=== PATIENT | male | born 1960 | race Caucasian/White ===

== ENCOUNTER 2020-06-16 09:16 | Emergency (ER) | payer OTHER, SELFPAY ==
[2020-06-16 09:34] VITALS: BP 159/88; PULSE 67; RESP 18; TEMP 36.4; O2SAT 98; BMI 24.7
--- NOTE | 2020-06-16 09:53 | ED_ITS ---
HPI - Weakness General Chief complaint: Dizziness Stated complaint: fatigue, falling asleep during activities, dizzy Time Seen by Provider: 06/16/20 09:28 Source: patient Mode of arrival: Family Vehicle Limitations: no limitations History of Present Illness HPI Narrative: Patient is a 50-year-old male who presents with generalized weakness ongoing for months. He states that he gets dizzy while hiking or exercising which she normally is able to do without any difficulty. He is noticing increased day sleepiness. states that he snores but does not think that he stops breathing or at think that it is abnormal. He denies any black or bloody stools. He has some occasional shortness of breath but he says it is really not too bad no chest pain or palpitations. He is only dizzy when doing strenuous exercise. He denies any balance issues while walking. He overall just feels weak and fatigued. He states that he does eat a healthy diet had a he drinks beer a to daily does not feel like it is excessive, he drinks water regularly. MD Complaint: generalized weakness Related Data Home Medications Medication Instructions Recorded Confirmed fluticasone propion-salmeterol 1 inh INHALATION BID 06/16/20 06/16/20 [Advair Diskus] Previous Rx's Medication Instructions Recorded albuterol sulfate 2 puff INHALATION Q4-6H PRN #8.5 06/16/20 gram Allergies Allergy/AdvReac Type Severity Reaction Status Date / Time No Known Drug Allergies Allergy Verified 06/16/20 09:39 Review of Systems Review of Systems ROS Unobtainable: All systems reviewed & are unremarkable except as noted in HPI and below Constitutional Constitutional: Reports daytime sleepiness, Reports lethargy and Reports weakness ENT Ears, Nose, Mouth, and Throat: Denies change in voice, Reports dizziness (while exercising), Denies neck pain and Denies sore throat Cardiovascular Cardiovascular: Denies chest pain, Denies irregular heart rhythm, Denies lightheadedness, Denies palpitations, Denies dyspnea, Denies dyspnea on exertion and Denies orthopnea Respiratory Respiratory: Denies cough, Denies dyspnea, Denies dyspnea on exertion and Denies wheezing Gastrointestinal Gastrointestinal: Denies abdominal pain, Denies change in bowel habits, Denies diarrhea, Denies nausea and Denies vomiting Genitourinary Genitourinary: Denies urinary hesitancy and Denies urinary urgency Genitourinary: Denies urinary hesitancy and Denies urinary urgency Musculoskeletal Musculoskeletal: Denies back pain, Denies myalgias and Denies neck pain Integumentary/Breasts Skin/Breast: Denies pruritus, Denies erythema, Denies rash and Denies wounds Neurologic Neurologic: Reports dizziness (while exercising) and Reports weakness Endocrine Endocrine: Denies palpitations Allergic/Immunologic Allergic/Immunologic: Denies wheezing Patient History Medical History Patient denies medical problems Social History Smoking Status: Former smoker Smoking Status: Former smoker alcohol intake frequency: 3 or more drinks per day Alcohol type: beer Substance Use Type: marijuana Exam Initial Vital Signs Initial Vital Signs: Vital Signs Temperature 97.6 F 06/16/20 09:34 Pulse Rate 67 06/16/20 09:34 Respiratory Rate 18 06/16/20 09:34 Blood Pressure 159/88 H 06/16/20 09:34 Pulse Oximetry 98 06/16/20 09:34 GENERAL: Well-appearing, well-nourished and in no acute distress. HEENT: Head atraumatic,EOMI, pupils reactive, face symmetric, moist mucous membranes CARDIOVASCULAR: Regular rate and rhythm without murmurs, rubs or gallops. RESPIRATORY: Breath sounds equal bilaterally, no wheezes rales or rhonchi. ABDOMEN: Soft, nontender. Normoactive bowel sounds all 4 quadrants. No guarding or rebound. EXTREMITIES: Normal range of motion, no clubbing or edema. Neurovascularly intact NEUROLOGICAL: Alert and oriented x4.Normal gait and speech. Cranial nerves II through XII grossly intact. [employer] strength equal bilaterally able to lift legs equally SKIN: Warm, dry, no laceration, no petechiae, no rashes or lesions. Course Orders Ordered: ED Orders 06/16/20 09:53 XR chest 2V Stat 06/16/20 09:59 EKG-12 Lead Stat 06/16/20 10:13 Complete Blood Count AUTO DIFF Stat Comprehensive Metabolic Panel Stat Thyroid Stimulating Hormone Stat Troponin & CK Cardiac Panel Stat Vital Signs Vital signs: Vital Signs - 8 hr 06/16/20 10:30 06/16/20 10:32 06/16/20 11:00 Pulse Rate 59 L 59 L Pulse Rate [Orthostatic Lying] 60 Pulse Rate [Orthostatic Sitting] 64 Pulse Rate [Orthostatic Standing] 68 Respiratory Rate 24 Blood Pressure 136/81 Blood Pressure [Orthostatic Lying] 124/83 Blood Pressure [Orthostatic Sitting] 145/85 H Blood Pressure [Orthostatic Standing] 141/89 H Pulse Oximetry 97 96 06/16/20 11:30 06/16/20 11:53 Pulse Rate 58 L 58 L Pulse Rate [Orthostatic Lying] Pulse Rate [Orthostatic Sitting] Pulse Rate [Orthostatic Standing] Respiratory Rate Blood Pressure 129/77 Blood Pressure [Orthostatic Lying] Blood Pressure [Orthostatic Sitting] Blood Pressure [Orthostatic Standing] Pulse Oximetry 94 97 MDM - Weakness Lab Data Attestation: I reviewed the patient's lab results. Result diagrams: 06/16/20 10:13 06/16/20 10:13 Labs: Lab Results 06/16/20 06/16/20 06/16/20 Range/Units 10:13 10:13 10:13 WBC 6.2 (4.5-11.0) X10^3/uL RBC 5.01 (4.5-5.9) X10^6/uL Hgb 15.7 (13.5-17.5) g/dL Hct 46.1 (41-53) % MCV 92.1 (80-100) fL MCH 31.3 (26-34) PG MCHC 34.1 (30-36) % RDW 13.6 (11.6-14.8) % Plt Count 212 (150-400) X10^3/uL Neut % (Auto) 58.8 (50-75) % Lymph % (Auto) 27.4 (25-40) % [place] % (Auto) 9.1 (3-14) % Eos % (Auto) 3.3 (2-4) % Baso % (Auto) 1.4 (0-2) % Neut # (Auto) 3600 (6592-5893) /uL Lymph # (Auto) 1700 (5708-5965) /uL [place] # (Auto) 600 (0-900) /uL Eos # (Auto) 200 (0-450) /uL Baso # (Auto) 100 (0-100) /uL Sodium 138 (137-145) mmol/L Potassium 4.9 (3.4-5.1) mmol/L Chloride 103 (98-107) mmol/L Carbon Dioxide 26 (22-32) mmol/L BUN 16 (9-20) mg/dL Creatinine 0.83 (0.66-1.25) mg/dL Estimated GFR > 60.0 (>60) mL/min BUN/Creatinine Ratio 19.3 (6-22) Glucose 101 H (70-100) mg/dL Calcium 9.7 (8.4-10.2) mg/dL Total Bilirubin 0.7 (0.2-1.3) mg/dL AST 35 (17-59) IU/L ALT 23 (<50) IU/L Alkaline Phosphatase 58 (38-126) U/L Total Creatine Kinase 121 (55-170) U/L CK-MB (CK-2) 2.33 (<2.37) ng/mL CK-MB (CK-2) Rel Index 1.9 (1.5-5.0) % Troponin I < 0.012 (0.01-0.034) ng/mL Total Protein 7.9 (6.3-8.2) g/dL Albumin 4.5 (3.5-5.0) g/dL Globulin 3.4 (1.7-4.1) g/dL Albumin/Globulin Ratio 1.3 (1.0-2.8) TSH 1.84 (0.47-4.68) uIU/mL Urine Dip Bedside Urine Glucose Negative Bedside Urine Bilirubin - Negative Bedside Urine Ketone - Negative Urine Specific [place] 1.020 Bedside Urine Occult Blood - Negative Bedside Urine pH 7 Bedside Urine Protein - Negative Bedside Urine Urobilinogen - Negative Bedside Urine Nitrite - Negative Bedside Urine Leukocytes - Negative Esterase Imaging Data Chest x-ray: Radiologist Impression: PROCEDURE: XR CHEST 2V INDICATIONS: weakness hx smoking TECHNIQUE: 2 views of the chest were acquired. COMPARISON: None. FINDINGS: Surgical changes and devices: None. Lungs and pleura: Lungs are clear. No pleural effusions or pneumothorax. The lungs are hyperexpanded, with flattening of the hemidiaphragms seen. Mediastinum: Mediastinal contours are normal. Heart size is normal. Bones and chest wall: No suspicious bony abnormalities. Age-appropriate bony degenerative changes are seen. Soft tissues appear unremarkable. IMPRESSION: Hyperexpanded lungs, without an acute cardiopulmonary process identified. Dictated by: Randell Marquis M.D. on 06/16/2020 at 9:12 ECG Data Attestation: I personally reviewed and interpreted this ECG as follows: Prior ECG tracings: not available for review Interpretation: Normal sinus rhythm rate 59 p.r. interval 162 QRS [address] changes or T-wave inversions right bundle-branch block noted MDM Narrative Medical decision making narrative: Patient blood work and exam are overall reas suring no abnormalities are found. He only has symptoms with strenuous activity possible exercise induced asthma recommend albuterol 30 minutes prior to activity and he certainly needs a primary care provider. He would also likely benefit from an outpatient sleep study. At this time and no further testing indicated in the emergency department. Discharge Plan Departure Patient Disposition: Home Clinical Impression: Exercise induced bronchospasm, Worried well Instructions: DI for Dizziness-Nonvertigo Activity Restrictions/Additional Instructions: *You have been diagnosed with at this time no cause of symptoms is found *What to do: Blood work is overall reassuring thyroid and glucose are within normal limits along with kidney function and hemoglobin. I recommend an outpatient sleep study and getting a primary care provider *Continue to take medications as directed Albuterol inhaler 1-2 puffs 30 minutes prior to exercise *Follow up with your primary care provider in 2-3 days *Return to ER if you should have increasing shortness of breath, dizziness, weakness or any new, worsening or concerning symptoms Prescriptions: New albuterol sulfate 90 mcg/actuation HFA aerosol inhaler 2 puff INHALATION Q4-6H PRN (Reason: shortness of breath or wheezing) Qty: 8.5 RF: 0 No Action fluticasone propion-salmeterol [Advair Diskus] 250-50 mcg/dose Blister With Device 1 inh INHALATION BID RF: 0 Referrals: [facility] [Outside]
[2020-06-16 10:23] LABS: Add Manual Diff / Slide Review NO; Basophils Absolute Auto 100 /uL (0-100); Basophils Percent Auto 1.4 % (0-2); Eosinophils Absolute Auto 200 /uL (0-450); Eosinophils Percent Auto 3.3 % (2-4); Hematocrit 46.1 % (41-53); Hemoglobin 15.7 g/dL (13.5-17.5); Lymphocytes Absolute Auto 1700 /uL (1100-4500); Lymphocytes Percent Auto 27.4 % (25-40); Mean Corpuscular HGB Conc 34.1 % (30-36); Mean Corpuscular Hemoglobin 31.3 PG (26-34); Mean Corpuscular Volume 92.1 fL (80-100); Monocytes Absolute Auto 600 /uL (0-900); Monocytes Percent Auto 9.1 % (3-14); Neutrophils Absolute Auto 3600 /uL (1500-7000); Neutrophils Percent Auto 58.8 % (50-75); Platelet Count 212 X10^3/uL (150-400); Red Blood Cell Count 5.01 X10^6/uL (4.5-5.9); Red Cell Distribution Width 13.6 % (11.6-14.8); White Blood Cell Count 6.2 X10^3/uL (4.5-11.0)
[2020-06-16 10:30] VITALS: BP 136/81; PULSE 59; RESP 24; O2SAT 97
[2020-06-16 10:32] VITALS: BP 124/83; BP 141/89; BP 145/85; PULSE 60; PULSE 64; PULSE 68
[2020-06-16 10:37] LABS: Alanine Aminotransferase 23 IU/L (<50); Albumin 4.5 g/dL (3.5-5.0); Albumin Globulin Ratio 1.3 (1.0-2.8); Alkaline Phosphatase 58 U/L (38-126); Aspartate Aminotransferase 35 IU/L (17-59); BUN Creatinine Ratio 19.3 (6-22); Bilirubin Total 0.7 mg/dL (0.2-1.3); Blood Urea Nitrogen 16 mg/dL (9-20); Calcium 9.7 mg/dL (8.4-10.2); Carbon Dioxide 26 mmol/L (22-32); Chloride 103 mmol/L (98-107); Creatine Kinase 121 U/L (55-170); Estimated Glomerular Filt Rate > 60.0 mL/min (>60); Globulin 3.4 g/dL (1.7-4.1); Glucose 101 mg/dL (70-100); HEMOLYSIS 44 (0-50); Potassium 4.9 mmol/L (3.4-5.1); Sodium 138 mmol/L (137-145); Total Protein 7.9 g/dL (6.3-8.2)
[2020-06-16 10:49] LABS: Troponin I < 0.012 ng/mL (0.01-0.034)
[2020-06-16 10:52] LABS: CKMB % Relative Index 1.9 % (1.5-5.0); Creatine Kinase MB 2.33 ng/mL (<2.37)
[2020-06-16 11:00] VITALS: PULSE 59; O2SAT 96
[2020-06-16 11:16] LABS: Thyroid Stimulating Hormone 1.84 uIU/mL (0.47-4.68)
[2020-06-16 11:30] VITALS: PULSE 58; O2SAT 94
[2020-06-16 11:53] VITALS: BP 129/77; PULSE 58; O2SAT 97
== END 2020-06-16 12:13 | disposition home or self-care (01) ==
PROVIDERS: Emergency Provider Emergency Medicine
DX: J45.990 Exercise induced bronchospasm (principal)
CPT/HCPCS: 36415; 71046; 80053; 81003; 82550; 82553; 84443; 84484; 85025; 93005; 93010; 99283; 99284